=== PATIENT | female | born 1940 | race African-American/Black ===

== ENCOUNTER 2017-03-20 10:07 | Inpatient (IN) ==
[2017-03-20] MEDS ORDERED: NALOXONE 0.4 MG/ML VIAL IV STA (10:30)
[2017-03-20] MEDS ORDERED: NALOXONE 0.4 MG/ML VIAL ONE (10:35)
--- NOTE | 2017-03-20 10:44 | CT Report ---
CT of the head without contrast. Indication: Mental status change. Comparison: May 11, 2016. There is calcific plaque present within the intracranial internal carotid arteries. 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 There is stable cerebellar atrophy. There is bilateral basal ganglial calcification. There are findings of low density in the periventricular white matter likely related to chronic microvascular ischemia. Possible remote cortical infarct involving the left temporal lobe. Is no mass effect, midline shift, or area of hemorrhage. There is a mucous retention cyst or polyp in the left sphenoid sinus, stable. The mastoid air cells are clear. The calvarium is intact. Impression: Chronic ischemic changes. No acute abnormality. The CT exam was performed using one or more of the following dose reduction techniques: Automated exposure control, adjustment of the mA and/or kV according to patient size, or use of iterative reconstruction technique. PROCEDURE INTERPRETED AT [facility] DEPARTMENT OF RADIOLOGY Final Report Signed by: Dr. Rosa Maria Bryant
--- NOTE | 2017-03-20 10:45 | XRay Report ---
Portable chest. Indication: Altered mental status. The heart and mediastinal contours are unremarkable. The pulmonary vasculature is normal. There is no consolidation, pneumothorax, or pleural effusion. Degenerative changes are noted within the thoracic spine. Impression: No acute abnormality. PROCEDURE INTERPRETED AT [facility] DEPARTMENT OF RADIOLOGY Final Report Signed by: Dr. Rosa Maria Bryant
--- NOTE | 2017-03-20 10:48 | Emergency Department Note ---
Aimee Cleaning Mantricia, am scribing for, and in the presence of, Gurpreet Hartman MD 10:25. Minnie Cleaning James D, MD, personally performed the services described in this documentation, ascribed by Yogi Yu in my presence, and it is both accurate and complete . Arrival - Arrival Chief Complaint: Neuro Stated Complaint: decreased LOC ED Nursing Triage Note: PT SENT FROM THE [facility] FOR EVALUATION OF DECREASED LOC. EMS CALLED FOR PT UNRESPONSIVE. PT RESPONSIVE ONLY TO DEEP PAINFUL STIMULI. NARCAN 0.8MG TOTAL GIVEN PER EMS, AND PT BECAME EASIER TO AROUSE. PT IS CURRENTLY HARD TO AROUSE. LAST KNOWN WELL LAST NIGHT BEFORE BED. Mode of Arrival: Stretcher Limitations: Altered Mental Status Source: Patient - History of Present Illness HPI Narrative: Pt is a 76 y/o black female arriving to ED by EMS with c/o decreased LOC that onset yesterday. Pt is a resident at the [facility] and which is who called EMS. EMS reports that pt was only responsive to deep painful stimuli. Pt was given 0.4 mg of Narcan initially and became minimally responsive, so she was given another 0.4 mg of Narcan per EMS. The [facility] reports that pt is usually awake by 0500 every morning; however, this morning, pt seemed very drousy and slow. No other complaints were reported to ED. Onset (ago): hour(s) Consistency: constant Severity: moderate Allergies/Adverse Reactions: Allergies Allergy/AdvReac Type Severity Reaction Status Date / Time No Known Allergies Allergy Verified 03/20/17 10:20 Review of System - Review of System Constitutional: Absent: chills, diaphoresis, fever Respiratory: Absent: cough Cardiovascular: Absent: chest pain Gastrointestinal: Absent: abdominal pain, nausea, vomiting, diarrhea Musculoskeletal: Absent: arm pain, back pain, leg pain, neck pain Neurological: Present: other (decreased LOC). Absent: headache, weakness, numbness, confusion Medical,Surgical,& Family Hx - Medical History Cardio: History of: Hypertension Neurology: History of: Parkinson's Disease Endocrine: History of: Diabetes Mellitus (NIDDM) - Social History Smoking Status: Never smoker Frequency of Alcohol Use: None Type of Drug Use: None Exam Vital Signs: Vital Signs Temperature 99.0 F 03/20/17 10:07 Pulse Rate 55 L 03/20/17 10:07 Respiratory Rate 16 03/20/17 10:07 Blood Pressure 135/65 03/20/17 10:07 O2 Sat by Pulse Oximetry 96 03/20/17 10:07 GENERAL: This is a well-nourished well-developed chronically ill-appearing black female in no apparent distress. VITAL SIGNS: Reviewed HEENT: Head is atraumatic and normocephalic. Pupils are pinpoint. Extraocular movements are intact. Oropharynx is benign with moist mucous membranes. NECK: Neck is soft and supple without tenderness. There are no masses. There is no lymphadenopathy. LUNGS: Lungs are clear to auscultation. Chest rises symmetrically. There is no chest wall tenderness. CV: Heart is regular rate and rhythm without murmurs rubs or gallops. ABDOMEN: Abdomen is soft, nontender to palpation. There are no abdominal abnormal masses palpated. There is no organomegaly. Bowel sounds are present and active. SKIN: Skin is warm and dry. No rash. EXTREMITIES: Patient has full range of motion without tenderness. There is no pedal edema. NEUROLOGIC: Patient is arousable to tactile stimulus. Cranial nerves II through XII are intact. Motor function: Patient moves all extremities. Course - Consultations Consultation #1: Discussed with hospitalist. Patient will be admitted to their service. Patient was given IV fluids and IV Rocephin in the emergency department. Time: 11:24 Results - Labs CBC & BMP: 03/20/17 10:43 Lab Results: I have reviewed the patients labs Labs: Laboratory Tests 03/20/17 03/20/17 10:46 11:04 INR 1.1 Urine pH 7.0 Ur Specific [place] 1.006 Urine Nitrate Positive H Urine Urobilinogen < 2.0 H Urine Leukocytes Moderate H Urine RBC 4 Urine WBC 74 - EKG EKG results: interpreted by ERMD - Impressions EKG: Sinus bradycardia, nonspecific ST-T wave changes, rate 50. - Diagnostic Findings Procedure: Chest x-ray: report reviewed by me, image reviewed by me (No acute abnormality.), CT: report reviewed by me, image reviewed by me (Head: Chronic ischemic changes. No acute abnormality.) Disposition Clinical Impression: Altered mental status, UTI (urinary tract infection) Case discussed with: patient Disposition: Still a Patient Condition: Stable Time of Disposition: 11:19
[2017-03-20 10:54] LABS: Basophils % 0.4 % (0.0-0.8); Eosinophils # 0.1 10*3/uL (0.0-0.87); Eosinophils % 1.6 % (0.00-10.9); Hematocrit 35.7 VOL% (35.7-47.0); Hemoglobin 12.9 GM/DL (12.0-16.0); Immature Granulocytes % 0.7 %; Immature Granulocytes Absolute 0.05 #; Lymphocytes # 1.8 10*3/uL (1.4-4.0); Lymphocytes % 25.8 % (21.3-54.2); Mean Corpuscular HGB Conc 36.1 GM/DL (32-36); Mean Corpuscular Hemoglobin 29 PG (27-34); Mean Corpuscular Volume 80.4 FL (87-102); Mean Platelet Volume 11.6 FL (9.6-12.0); Monocytes # 0.6 10*3/uL (0.11-0.8); Monocytes % 8.6 % (1.7-12.7); Neutrophils # 4.4 10*3/uL (1.4-7.4); Neutrophils % 62.9 % (38.7-73.9); Platelet Count 332 T/CUMM (130-400); Red Blood Count 4.44 MC/CUMM (3.8-5.5); Red Cell Distribution Width 13.7 % (9.3-17.3)
--- NOTE | 2017-03-20 10:55 | EKG Report ---
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
[2017-03-20 11:03] LABS: INR 1.1; PT Patient Result 11.2 SECS; Partial Thromboplastin Time 28.2 SECS (0-40)
[2017-03-20 11:11] LABS: Apearance,Urine Slightly Hazy (Clear); Bacteria,Urine Occasional /HPF (Few); Bilirubin,Urine Negative (Negative); Blood, Urine Small mg/dL (Negative); Glucose,Urine (UA) Negative (Negative); Ketones,Urine Negative (Negative); Nitrite,Urine Positive (Negative); Protein,Urine Negative; RBC,Urine 4 /HPF (0-4); Urine Color Yellow (Yellow); Urine Specific Gravity 1.006 (1.001-1.035); Urine Urobilinogen < 2.0 EU/DL (0.2-1.0); WBC,Urine 74 /HPF (0-6)
[2017-03-20] MEDS ORDERED: cefTRIAXone 1,000 MG in SODIUM CHLORIDE 0.9% 100 ML IV STA (11:18)
[2017-03-20 11:25] LABS: Barbiturates Screen,Urine Negative (Negative); Benzodiazepines Screen,Urine Negative (Negative); Cannabinoid Screen,Urine Negative (Negative); Opiate Screen,Urine Negative (Negative); Phencyclidine Screen,Urine Negative (Negative)
[2017-03-20 11:29] LABS: Albumin 3.8 G/DL (3.4-5.0); Bilirubin,Total 0.6 MG/DL (0.2-1.0); Calcium 9.5 MG/DL (8.5-10.1); Osmolality,Calculated 281.3 MOS/KG (273-304); Potassium 3.7 MMOL/L (3.5-5.1); Total Protein 6.9 G/DL (6.4-8.3)
[2017-03-20] MEDS ORDERED: cefTRIAXone 1,000 MG VIAL ONE (11:39)
--- NOTE | 2017-03-20 12:00 | Hospitalist History & Physical ---
<Bert Wall - Last Filed: 03/20/17 11:51> Assessment and Plan - Time spent with patient Time spent with patient: Greater than 30 minutes (1) Altered mental status Status: Acute Assessment and plan: 76-year-old -[place] halfway resident who presents with altered mental status. His CT is negative. Chest x-ray negative. Patient does have a UTI however white count is normal. Ammonia level is 39. Patient does respond to painful stimuli and some questioning. Admit for observation with antibiotic treatment and lactulose for the hyperammonemia. Current Visit: Yes (2) UTI (urinary tract infection) Status: Acute Assessment and plan: Urinalysis positive for nitrates, urobilinogen and moderate leukocytes. Urine culture to follow. Patient has been started on empiric Rocephin. Current Visit: Yes (3) Hyperammonemia Status: Acute Assessment and plan: Ammonia level resulted at 39. Give lactulose. Current Visit: Yes (4) Hypertension Status: Acute Assessment and plan: BP currently well controlled. Continue to monitor BP and restart home medications once confirmed. Current Visit: Yes (5) Diabetes mellitus Status: Acute Assessment and plan: Per ED nurse, the patient does have diabetes mellitus. Serum glucose is 89. Will get a hemoglobin A1c and initiate sliding scale insulin per protocol. Current Visit: Yes (6) Systemic inflammatory response syndrome (SIRS) Status: Acute Assessment and plan: There was concern for possible sepsis. Appropriate labs have been ordered. No leukocytosis or fever. Respiratory rate and heart rate are within normal limits. Blood cultures and lactic acid pending. Will follow up. Current Visit: Yes History of Present Illness Chief complaint: Altered mental status History of present illness: Ms. Reis is a 76 year old -Liberian female with past medical history significant for hypertension and Parkinson's disease who presents to the ED via EMS from her halfway for further evaluation of altered mental status with onset this morning. According to EMS records, the patient is normally quite independent and is awake most days at 0500. However, today the patient was found to be difficult to arouse and only responded to painful stimuli. EMS was called and patient was transferred to [facility] for further evaluation. On arrival at [facility], the patient still responds only to painful stimuli and does answer some questions. She is oriented to person place and situation, but she is noticeably lethargic. She was apparently given 2 doses of Narcan while at the halfway with minimal response. On exam, the patient denies any pain though questioning her was difficult due to her drifting in and out of consciousness. Hematology reveals a relatively normal CBC with a low MCV and MCHC. Coagulation is unremarkable. Chemistries reveal an elevated ammonia level at 39. Urinalysis is positive for nitrates, urobilinogen and moderate leukocytes. Urine culture to follow. Toxicology screen is negative. This case been discussed with both Dr. Hartman, ER physician, and Dr. Gomez, admitting physician, and patient will be admitted to the hospital medicine service for further evaluation and treatment. Patient is a full code. Home medications will be reviewed and reconciled once available. Allergies Allergy/AdvReac Type Severity Reaction Status Date / Time No Known Allergies Allergy Verified 03/20/17 10:20 Medical,Surgical,& Family Hx - Medical History Cardio: History of: Hypertension Neurology: History of: Parkinson's Disease Endocrine: History of: Diabetes Mellitus (NIDDM) - Family History Family History: Reports;: Family Heart Disease, Family Hypertension - Social History Smoking Status: Never smoker Frequency of Alcohol Use: None Type of Drug Use: None Marital Status: Single Lives With:: [facility] Functional capacity: independent ambulation ROS unobtainable: due to encephalopathy Exam - Constitutional Vitals: Period Temp Pulse Resp BP Sys/Alexander Pulse Ox Last 24 Hr 99.0 F-99.0 F 55-55 16-16 135-135/65-65 96 Exam: General appearance: normal weight, no acute distress, lethargic - Head Head exam: Present: normocephalic, atraumatic - Eye Eye exam: Present: EOMI. Absent: conjunctival injection, nystagmus Pupils: Present: KATARINA, normal accommodation - ENT ENT exam: Present: normal exam, normal external ear exam - Neck Neck exam: Present: normal inspection. Absent: lymphadenopathy, tenderness, thyromegaly - Respiratory Respiratory exam: Present: clear to auscultation bilaterally. Absent: rales, rhonchi, wheezes - Cardiovascular Cardiovascular exam: Present: regular rate and rhythm. Absent: carotid bruit, gallop, rubs - GI/Abdominal GI/Abdominal exam: Present: normal bowel sounds. Absent: ascites, distended, mass - Extremities Exam Extremities exam: Present: normal inspection, normal capillary refill. Absent: edema - Back Exam Back exam: Absent: CVA tenderness (L), CVA tenderness (R) - Neurological Exam Neurological exam: Present: oriented X3, CN II-XII intact, reflexes normal - Psychiatric Psychiatric exam: Unable to assess due to mental status - Skin Skin exam: Present: normal color, warm, dry Results - Labs CBC & BMP: 03/20/17 10:43 03/20/17 10:46 Lab Results: I have reviewed the past 24 hour labs - EKG EKG results: interpreted by ERMShania, sinus rhythm EKG shows: bradycardia - Diagnostic Findings Procedure: Chest x-ray: image reviewed by me, report reviewed by me (No abnormality), CT: image reviewed by me, report reviewed by me (Head: No abnormalities) Quality Measures - Stroke Symptom Onset Unknown: Yes <Christopher Gomez - Last Filed: 03/20/17 15:07> History of Present Illness History of present illness: Ms. Reis is a 76 year old female admitted to the hospital with a urinary tract infection, altered mental status, and hyperammonia anemia. I have interviewed and examined the patient and reviewed all available laboratory and radiographic test results. I agree with the assessment and plans of ALETHEA Doyle. The patient is being admitted to the hospital, begun on intravenous antibiotics, and begun on oral lactulose. Exam - Constitutional Vitals: Period Temp Pulse Resp BP Sys/Alexander Pulse Ox Last 24 Hr 98.2 F-99.0 F 50-74 16-20 109-162/57-72 95-98 Results - Labs CBC & BMP: 03/20/17 10:43 03/20/17 10:46
[2017-03-20] MEDS ORDERED: GLUCAGON 1 MG VIAL IM PRN ×2 (12:19→15:06)
[2017-03-20] MEDS ORDERED: DEXTROSE 50% 25 GM/50 ML SYRINGE IV PRN ×2 (12:19→15:06)
[2017-03-20] MEDS ORDERED: ONDANSETRON 4 MG/2 ML VIAL IV PRN (12:19)
[2017-03-20] MEDS ORDERED: tiZANidine 4 MG TABLET PO PRN (12:25)
[2017-03-20] MEDS ORDERED: MAGNESIUM HYDROXIDE SUSP 30 ML UDCUP PO PRN (12:25)
[2017-03-20] MEDS ORDERED: CETIRIZINE 10 MG TABLET PO PRN (12:25)
[2017-03-20] MEDS: SODIUM CHLORIDE 0.9% 1,000 ML IV SCH ×2 (13:28→21:09)
[2017-03-20] MEDS: PANTOPRAZOLE 40 MG TABLET PO SCH (14:38)
[2017-03-20] MEDS: LACTULOSE 20 GM/30 ML UDCUP PO SCH ×4 (14:38→21:02)
[2017-03-20] MEDS: CARBIDOPA/LEVODOPA 25-100 MG TABLET PO SCH ×3 (14:38→21:02)
[2017-03-20] MEDS: ENTACAPONE 200 MG TABLET PO SCH ×3 (15:29→21:02)
[2017-03-20] MEDS: POLYVINYL ALCOHOL 1.4% OPH SOLN 15 ML BOTTLE BOTH EYES SCH ×2 (15:29→21:03)
[2017-03-20] MEDS: INSULIN LISPRO 100 UNIT/ML SUBCUT SCH ×2 (17:03→20:54)
[2017-03-20] MEDS: metFORMIN 500 MG TABLET PO SCH (17:38)
[2017-03-20] MEDS: traZODone 50 MG TABLET PO SCH (21:02)
[2017-03-20] MEDS: POTASSIUM CHLORIDE 8 MEQ CAPSULE PO SCH (21:02)
[2017-03-20] MEDS: LATANOPROST 0.005% OPH SOLN 2.5 ML BOTTLE BOTH EYES SCH (21:18)
[2017-03-20] MEDS: ACETAMINOPHEN 325 MG TABLET PO PRN (23:01)
[2017-03-21] MEDS: LACTULOSE 20 GM/30 ML UDCUP PO SCH ×9 (00:05→23:54)
[2017-03-21 04:19] LABS: Basophils % 0.4 % (0.0-0.8); Eosinophils # 0.1 10*3/uL (0.0-0.87); Eosinophils % 1.4 % (0.00-10.9); Hematocrit 31.4 VOL% (35.7-47.0); Hemoglobin 11.3 GM/DL (12.0-16.0); Immature Granulocytes % 0.7 %; Immature Granulocytes Absolute 0.06 #; Mean Corpuscular Hemoglobin 29 PG (27-34); Mean Corpuscular Volume 81.8 FL (87-102); Monocytes # 0.7 10*3/uL (0.11-0.8); Monocytes % 9.1 % (1.7-12.7); Neutrophils # 6.1 10*3/uL (1.4-7.4); Neutrophils % 75.4 % (38.7-73.9); Platelet Count 273 T/CUMM (130-400); Red Blood Count 3.84 MC/CUMM (3.8-5.5); Red Cell Distribution Width 13.8 % (9.3-17.3)
[2017-03-21 04:42] LABS: Calcium 7.9 MG/DL (8.5-10.1); Osmolality,Calculated 289.7 MOS/KG (273-304); Potassium 3.6 MMOL/L (3.5-5.1)
[2017-03-21] MEDS: CARBIDOPA/LEVODOPA 25-100 MG TABLET PO SCH ×5 (05:46→21:51)
[2017-03-21] MEDS: SODIUM CHLORIDE 0.9% 1,000 ML IV SCH ×3 (05:46→23:58)
[2017-03-21] MEDS: ENTACAPONE 200 MG TABLET PO SCH ×5 (05:46→21:50)
[2017-03-21] MEDS: INSULIN LISPRO 100 UNIT/ML SUBCUT SCH ×4 (08:39→21:51)
[2017-03-21] MEDS: PANTOPRAZOLE 40 MG TABLET PO SCH (09:49)
[2017-03-21] MEDS: TRIAMTERENE/HCTZ 37.5-25 MG TABLET PO SCH (09:49)
[2017-03-21] MEDS: POLYVINYL ALCOHOL 1.4% OPH SOLN 15 ML BOTTLE BOTH EYES SCH ×3 (09:49→21:50)
[2017-03-21] MEDS: metFORMIN 500 MG TABLET PO SCH ×2 (09:50→17:24)
[2017-03-21] MEDS: POTASSIUM CHLORIDE 8 MEQ CAPSULE PO SCH ×2 (09:50→21:51)
[2017-03-21] MEDS: FUROSEMIDE 20 MG TABLET PO SCH (09:50)
[2017-03-21] MEDS: RASAGILINE 0.5 MG TABLET PO SCH (09:50)
[2017-03-21] MEDS: FLUTICASONE 50 MCG NASAL SPRAY 16 GM BOTTLE BOTH NARES SCH (09:50)
--- NOTE | 2017-03-21 10:19 | Hospitalist Progress Note ---
Assessment and Plan (1) Altered mental status Status: Acute Assessment and plan: She is alert and oriented 3 today. She is returned to what is her reported baseline mental status. Current Visit: Yes Qualifiers: Altered mental status type: unspecified Qualified Code(s): R41.82 - Altered mental status, unspecified (2) UTI (urinary tract infection) Status: Acute Assessment and plan: She is being treated with intravenous ceftriaxone 1000 mg daily. Urine cultures are pending. Current Visit: Yes Qualifiers: Urinary tract infection type: site unspecified Hematuria presence: without hematuria Qualified Code(s): N39.0 - Urinary tract infection, site not specified (3) Hypertension Status: Acute Assessment and plan: Blood pressure today is 94/44. It was 114/55 yesterday. I have held her antihypertensive medications. Current Visit: Yes Qualifiers: Hypertension type: essential hypertension Qualified Code(s): I10 - Essential (primary) hypertension (4) Diabetes mellitus Status: Acute Assessment and plan: Her blood glucose today is 99. She is being treated with Metformin and sliding scale insulin coverage. Current Visit: Yes Qualifiers: Diabetes mellitus type: type 2 Diabetes mellitus complication status: without complication Hospitalist: Subjective Interval history: Ms. Reis was admitted to the hospital yesterday with a urinary tract infection and altered mental status. She has been treated with intravenous antibiotics. Her mental status has returned to reportedly her baseline status. I will continue her intravenous antibiotics today. [facility]. Exam - Constitutional Vitals: Period Temp Pulse Resp BP Sys/Alexander Pulse Ox Last 24 Hr 97.4 F-98.3 F 50-83 16-22 94-162/44-72 93-98 General appearance: no acute distress - Head Head exam: Present: normal inspection - Neck Neck exam: Present: normal inspection - Respiratory Respiratory exam: Present: clear to auscultation bilaterally - Cardiovascular Cardiovascular exam: Present: regular rate and rhythm - GI/Abdominal GI/Abdominal exam: Present: normal bowel sounds, soft, other (Nontender with no palpable masses or hepatosplenomegaly.) - Extremities Exam Extremities exam: Present: normal inspection - Neurological Exam Neurological exam: Present: alert, oriented X3 - Skin Skin exam: Present: normal color, warm, intact Results - Labs CBC & BMP: 03/21/17 03:50 03/21/17 03:50 Quality Measures - Stroke Symptom Onset Unknown: Yes
[2017-03-21] MEDS: traZODone 50 MG TABLET PO SCH (21:51)
[2017-03-21] MEDS: LATANOPROST 0.005% OPH SOLN 2.5 ML BOTTLE BOTH EYES SCH (21:56)
[2017-03-22] MEDS: LACTULOSE 20 GM/30 ML UDCUP PO SCH ×7 (03:52→20:43)
[2017-03-22] MEDS: CARBIDOPA/LEVODOPA 25-100 MG TABLET PO SCH ×5 (06:42→21:30)
[2017-03-22] MEDS: ENTACAPONE 200 MG TABLET PO SCH ×5 (06:42→21:30)
[2017-03-22 06:43] LABS: Basophils % 0.2 % (0.0-0.8); Eosinophils # 0.2 10*3/uL (0.0-0.87); Eosinophils % 1.9 % (0.00-10.9); Hematocrit 33.5 VOL% (35.7-47.0); Hemoglobin 11.8 GM/DL (12.0-16.0); Immature Granulocytes % 0.7 %; Immature Granulocytes Absolute 0.06 #; Lymphocytes # 1.4 10*3/uL (1.4-4.0); Lymphocytes % 16.6 % (21.3-54.2); Mean Corpuscular HGB Conc 35.2 GM/DL (32-36); Mean Corpuscular Hemoglobin 29 PG (27-34); Mean Corpuscular Volume 82.1 FL (87-102); Mean Platelet Volume 12.6 FL (9.6-12.0); Monocytes # 0.6 10*3/uL (0.11-0.8); Monocytes % 7.8 % (1.7-12.7); Neutrophils % 72.8 % (38.7-73.9); Platelet Count 279 T/CUMM (130-400); Red Blood Count 4.08 MC/CUMM (3.8-5.5); Red Cell Distribution Width 13.9 % (9.3-17.3); White Blood Count 8.2 T/CUMM (4-12)
[2017-03-22 07:04] LABS: Calcium 8.4 MG/DL (8.5-10.1); Osmolality,Calculated 285.8 MOS/KG (273-304); Potassium 4.2 MMOL/L (3.5-5.1)
[2017-03-22] MEDS: INSULIN LISPRO 100 UNIT/ML SUBCUT SCH ×4 (08:50→20:34)
[2017-03-22] MEDS: SODIUM CHLORIDE 0.9% 1,000 ML IV SCH ×2 (08:53→16:58)
[2017-03-22] MEDS: metFORMIN 500 MG TABLET PO SCH ×2 (08:53→17:21)
[2017-03-22] MEDS: RASAGILINE 0.5 MG TABLET PO SCH (08:54)
[2017-03-22] MEDS: POLYVINYL ALCOHOL 1.4% OPH SOLN 15 ML BOTTLE BOTH EYES SCH ×3 (08:54→20:43)
[2017-03-22] MEDS: FUROSEMIDE 20 MG TABLET PO SCH (08:55)
[2017-03-22] MEDS: TRIAMTERENE/HCTZ 37.5-25 MG TABLET PO SCH (08:55)
[2017-03-22] MEDS: POTASSIUM CHLORIDE 8 MEQ CAPSULE PO SCH ×2 (08:55→20:44)
[2017-03-22] MEDS: FLUTICASONE 50 MCG NASAL SPRAY 16 GM BOTTLE BOTH NARES SCH (08:55)
[2017-03-22] MEDS: PANTOPRAZOLE 40 MG TABLET PO SCH (08:56)
--- NOTE | 2017-03-22 10:40 | Physician Query Form ---
CLICK EDIT DOCUMENT TO SELECT QUERY ANSWER --> OK --> SIGN Poly Wilson RN, CCDS Certified Clinical Internal Grinder Set Up Operator W) [phone] (f) [phone] [email or web address] PROVIDERS: Make your selection(s) from the choices in EACH section by typing an "x" and enter comments in the comment section. Please use your independent medical judgment in providing your response. This request does not imply that any particular answer is desired or expected. CLINICAL INDICATORS: (Providers should not edit this section) The medical record indicates that the patient was admitted with an UTI, AMS, "EMS reports that pt was only responsive to deep painful stimuli, and the patient was treated with Ceftriaxone/ Lactulose/ Patient had a CT of the brain done. ACUITY: ( ) Acute ( x) Acute on Chronic ( ) Chronic ( ) Clinically unable to determine NATURE: ( ) Delirium due to general medical condition ( ) Dementia ( ) Encephalopathy (x ) Encephalopathy due to UTI ( ) Unconscious ( ) Transient level of awareness ( ) Comatose ( ) Locked-in State ( ) Persistent Vegetative State ( ) Other, please specify: ( ) Clinically unable to determine Please indicate the underlying cause of the altered mental status (CHECK ALL THAT APPLY): ( ) Baseline dementia ( ) Alzheimer's disease ( ) Parkinson's disease ( ) Lewy body dementia ( ) Acute stroke ( ) Late effect of stroke ( ) Reactive (from emotional stress, psychological trauma) ( ) Due to narcotics/other drugs ( ) Post procedural delirium ( ) Transient ischemic attack ( ) Generalized cerebral edema ( ) Normal pressure hydrocephalus ( ) Psychiatric illness ( ) Other, please specify: ( ) Clinically unable to determine Please indicate if there is an infection, sepsis, dehydration or specific organ failure that is causing the dementia. Be specific with clarifying the relationship between that process and the mental status change. COMMENTS: PLEASE ALSO DOCUMENT RESPONSE IN PROGRESS NOTES AND/OR DISCHARGE SUMMARY Use of terms such as suspected, likely, or probable (associated with a specific diagnosis that is being evaluated, monitored, or treated as if it exists) are acceptable and can be restated in the discharge summary if not ruled out. MTDD
[2017-03-22] MEDS: ACETAMINOPHEN 325 MG TABLET PO PRN ×2 (11:50→22:45)
--- NOTE | 2017-03-22 17:37 | Hospitalist Progress Note ---
Hospitalist: Subjective Interval history: Patient is awake and comfortable Exam - Constitutional Vitals: Period Temp Pulse Resp BP Sys/Alexander Pulse Ox Last 24 Hr 97.6 F-98.6 F 62-76 18-22 107-127/54-79 92-99 Exam: General: No Acute Distress HEENT: Normocephalic, atraumatic, Extra ocular movements intact Neck: Supple, No JVD Chest: Clear to auscultation B/L CV: S1 + S2 audible without murmur, gallop or rub Abd: soft, NT, Non-distended, BS + Ext: No edema Skin: No purpura, bruising or rash Rheumatologic: No Joint deformities Neurologic: no gross sensory deficits Results - Labs CBC & BMP: 03/22/17 05:02 03/22/17 05:02 - Impressions Assessment and Plan: (1) Altered mental status Status: Acute Assessment and plan: She is alert and oriented 3 today. She is returned to what is her reported baseline mental status. Current Visit: Yes (2) UTI (urinary tract infection) Status: Acute Assessment and plan: She is being treated with intravenous ceftriaxone 1000 mg daily. Urine cultures are pending. Current Visit: Yes (3) Hypertension Status: Acute Assessment and plan: Controlled on Controlled on Maxzide Current Visit: Yes (4) Diabetes mellitus Status: Acute Assessment and plan: Controlled Current Visit: Yes Quality Measures - Stroke Symptom Onset Unknown: Yes
[2017-03-22] MEDS: LATANOPROST 0.005% OPH SOLN 2.5 ML BOTTLE BOTH EYES SCH (20:43)
[2017-03-22] MEDS: traZODone 50 MG TABLET PO SCH (20:44)
[2017-03-23] MEDS: LACTULOSE 20 GM/30 ML UDCUP PO SCH ×2 (01:00→03:01)
[2017-03-23] MEDS: SODIUM CHLORIDE 0.9% 1,000 ML IV SCH ×2 (01:05→10:06)
[2017-03-23] MEDS: INSULIN LISPRO 100 UNIT/ML SUBCUT SCH ×2 (07:49→12:19)
[2017-03-23] MEDS: ENTACAPONE 200 MG TABLET PO SCH ×2 (07:49→10:06)
[2017-03-23] MEDS: CARBIDOPA/LEVODOPA 25-100 MG TABLET PO SCH ×2 (07:49→10:06)
[2017-03-23] MEDS: metFORMIN 500 MG TABLET PO SCH (09:20)
[2017-03-23] MEDS: FUROSEMIDE 20 MG TABLET PO SCH (09:20)
[2017-03-23] MEDS: RASAGILINE 0.5 MG TABLET PO SCH (09:20)
[2017-03-23] MEDS: FLUTICASONE 50 MCG NASAL SPRAY 16 GM BOTTLE BOTH NARES SCH (09:20)
[2017-03-23] MEDS: POLYVINYL ALCOHOL 1.4% OPH SOLN 15 ML BOTTLE BOTH EYES SCH (09:20)
[2017-03-23] MEDS: POTASSIUM CHLORIDE 8 MEQ CAPSULE PO SCH (09:21)
[2017-03-23] MEDS: PANTOPRAZOLE 40 MG TABLET PO SCH (09:21)
[2017-03-23] MEDS: TRIAMTERENE/HCTZ 37.5-25 MG TABLET PO SCH (09:21)
[2017-03-23] MEDS ORDERED: CEFUROXIME 500 MG TABLET PO SCH (09:30)
--- NOTE | 2017-03-23 11:28 | Discharge Summary ---
<Christina Barron - Last Filed: 03/23/17 11:12> Hospital Course - Hospital Course Hospital Course: Ms Reis w/PMHx of HTN, Parkinson's disease, Diabetes presented to the ED on for further evaluation decreased LOC from the [facility]. Narcan was given by EMS and showed improvement of LOC. IN ED: H&H stable. Electrolytes WNL. Ammonia mildly elevated at 39. Urinalysis suggested urinary tract infection. Toxicology negative. CXR: nothing acute. Head CT: nothing acute. EKG: sinus bradycardia HR 50. Hospital Medicine consulted for admission, Antibiotics started for UTI, urine culture ordered, Lactulose ordered for ammonia level, sliding scale and diabetic protocol initiated and monitor glucose and A1c. With IV Rocephin patient showed great improvement in symptoms and mental status is now back to baseline, repeat labs showed improving values and patient returned to baseline mental status. Final Urine culture for Escherichia Coli sensitive to several antibiotics. Today 03/23/17 patient is stable and symptoms have improved. She is ready for discharge returning to [facility]. She will need to follow up with Primary Care Physician. Patient has reached maximal hospital benefit and being discharged back to longterm. Total discharge time 40 minutes. Discharge Plan - Discharge Data Disposition: Disch/Xfer to Snf - Discharge Medications New Cefuroxime Tab [Ceftin] 500 mg PO BID #10 tablet Entacapone [Comtan] 200 mg PO 5X DAILY tablet Continue Ondansetron Tab [Zofran Tab] 4 mg PO Q6H PRN PRN Reason: Nausea/Vomiting traZODone [Desyrel] 25 mg PO BEDTIME metFORMIN [Glucophage] 500 mg PO BID W/MEALS Triamterene/Hydrochlorothiazid [Triamterene-Hctz 37.5-25 mg Tb] 1 each PO QAM Tizanidine HCl 2 mg PO Q8H PRN PRN Reason: Muscle Pain Potassium Chloride [Klor-Con Sprinkle] 8 meq PO BID Polyvinyl Alcohol [Artificial Tears] 1 drop BOTH EYES TID Magnesium Hydroxide Susp [Milk of Magnesia] 30 ml PO DAILY PRN PRN Reason: Constipation Latanoprost [Latanoprost 0.005 % Oph Soln] 1 drop BOTH EYES BEDTIME Furosemide 20 mg PO QAM Fluticasone Propionate [Fluticasone 50 mcg Nasal [place]] 2 sprays BOTH NARES QAM Carbidopa/Levodopa/Entacapone [Yusxgduqh-Boodmyok-Zirm 100 mg] 1 each PO 5X DAILY Acetaminophen [Pain Relief] 1,000 mg PO Q6H PRN PRN Reason: Pain/TEMP >101 Rasagiline Mesylate 1 mg PO QAM Omeprazole 40 mg PO QAM Cetirizine Tab [ZyrTEC Tab] 10 mg PO QAM PRN PRN Reason: ALLERGIES - Follow Up or Referral - Forms/Instructions Exam - Constitutional Vitals: Period Temp Pulse Resp BP Sys/Alexander Pulse Ox Last 24 Hr 97.3 F-98.5 F 71-77 18-22 121-150/60-79 94-96 Discharge Results Procedures and tests throughout hospitalization: Pending Orders 03/20/17 11:38 Blood Culture Stat Labs on day of discharge: Labs from last 24 hours 03/23/17 03/22/17 03/22/17 07:14 19:45 15:50 POC Glucose 94 109 H 98 Preliminary micro results at discharge 03/20/17 11:38 Blood Culture - Preliminary Blood No growth at 1 day 03/20/17 11:38 Blood Culture - Preliminary Blood No growth at 1 day DS: Provider Date of admission: 03/20/17 11:27 Primary care physician: . No PCP Attending physician on admission: Christopher Gomez Consults: 03/20/17 13:22 Consult to Pastoral Services [CONS] Routine Comment: Pastoral Screen: Request Core Cutter Visit Pastoral Screen Source of Request: Patient 03/21/17 10:21 Consult to Case Mgmt/Social Srvs [CONS] Routine Reason for Case Mgmt/Social Srvs: Discharge Planning Consult Comment: Discharge tommorow to [place] Discharging clinician: Christina Barron NP <Prieto Lorenzo - Last Filed: 03/23/17 11:59> Hospital Course - Time spent with patient Time with patient DS: Greater than 30 minutes Diagnosis - Discharge Diagnosis (1) UTI (urinary tract infection) Status: Resolved (2) Hyperammonemia Status: Resolved Discharge Plan - Discharge Data Condition at Discharge: Stable Discharge Diet: advance to your usual diet Activity: resume usual activities as tolerated Exam - Constitutional Exam: General: No Acute Distress HEENT: Normocephalic, atraumatic, Extra ocular movements intact Neck: Supple, No JVD Chest: Clear to auscultation B/L CV: S1 + S2 audible without murmur, gallop or rub Abd: soft, NT, Non-distended, BS + Ext: No edema Skin: No purpura, bruising or rash Rheumatologic: No Joint deformities Neurologic: Awake and alert
[2017-03-23 11:51] VITALS: BP 139/63
== END 2017-03-23 13:40 | DRG 689 ==
LOC: EDBD → EDUNIT# → N.ED 10:07 → N.EDINP 11:27 → SUATTDRO 11:27 → N.2E 13:00
PROVIDERS: ATTEND Hospitalist

== ENCOUNTER 2019-12-04 14:27 | Inpatient (IN) ==
[2019-12-04] MEDS ORDERED: SODIUM CHLORIDE 0.9% 1,000 ML IV STA (15:21)
[2019-12-04 16:25] LABS: Hematocrit 38.9 VOL% (35.7-47.0); Hemoglobin 13.6 GM/DL (12.0-16.0); Immature Granulocytes % 0.8 %; Immature Granulocytes Absolute 0.04 #; Lymphocytes # 1.1 10*3/uL (1.4-4.0); Mean Corpuscular Volume 82.6 FL (87-102); Mean Platelet Volume 12.1 FL (9.6-12.0); Monocytes % 7.9 % (1.7-12.7); Neutrophils % 70.3 % (38.7-73.9); Platelet Count 251 T/CUMM (130-400); Red Blood Count 4.71 MC/CUMM (3.8-5.5); Red Cell Distribution Width 14.9 % (9.3-17.3)
[2019-12-04 16:32] LABS: Apearance,Urine CLEAR (Clear); Bacteria,Urine Many /HPF (Few); Bilirubin,Urine Negative (Negative); Blood, Urine Small mg/dL (Negative); Glucose,Urine (UA) Negative (Negative); Hyaline Casts,Urine 1 /LPF (0-3); Ketones,Urine Negative (Negative); Nitrite,Urine Negative (Negative); Protein,Urine Negative; RBC,Urine 17 /HPF (0-4); Squamous Epithelial Cell,Urine Occasional /HPF (0-10); Urine Color Amber (Yellow); Urine Specific Gravity 1.013 (1.001-1.035); Urine Urobilinogen < 2.0 EU/DL (0.2-1.0)
[2019-12-04 16:37] LABS: Barbiturates Screen,Urine Negative (Negative); Benzodiazepines Screen,Urine Negative (Negative); Cannabinoid Screen,Urine Negative (Negative); Opiate Screen,Urine Negative (Negative); Phencyclidine Screen,Urine Negative (Negative)
[2019-12-04 16:38] LABS: Alanine Aminotransferase 33 U/L (13-56); Albumin 3.6 G/DL (3.4-5.0); Alkaline Phosphatase 97 U/L (45-117); Aspartate Amino Transferase 94 U/L (0-37); Blood Urea Nitrogen 42 MG/DL (7-18); Calcium 9.4 MG/DL (8.5-10.1); Estimated Glom Filtration Rate 39 ML/MIN; Glucose 82 MG/DL (74-106); Osmolality,Calculated 273.5 MOS/KG (273-304); Total Protein 8.2 G/DL (6.4-8.3)
[2019-12-04] MEDS ORDERED: GLUCAGON 1 MG VIAL IM PRN (18:11)
[2019-12-04] MEDS ORDERED: ONDANSETRON 4 MG/2 ML VIAL IV PRN (18:11)
[2019-12-04] MEDS ORDERED: DEXTROSE 10% 250 ML BAG IV PRN (18:11)
[2019-12-04] MEDS ORDERED: ACETAMINOPHEN 325 MG TABLET PO PRN (18:11)
[2019-12-04 18:33] LABS: Hypochromasia Slight; Microcytosis Slight; Platelet Estimate Adequate
[2019-12-04] MEDS: SODIUM CHLORIDE 0.9% 1,000 ML IV SCH (19:11)
[2019-12-05] MEDS ORDERED: IBUPROFEN 800 MG TABLET PO PRN (02:30)
[2019-12-05] MEDS ORDERED: tiZANidine 4 MG TABLET PO PRN (02:30)
[2019-12-05] MEDS ORDERED: traZODone 50 MG TABLET PO SCH (02:30)
[2019-12-05] MEDS ORDERED: DEXTROSE 10% 250 ML BAG IV PRN (02:30)
[2019-12-05] MEDS ORDERED: MAGNESIUM HYDROXIDE SUSP 30 ML UDCUP PO PRN (02:30)
[2019-12-05] MEDS ORDERED: GLUCAGON 1 MG VIAL IM PRN (02:30)
[2019-12-05] MEDS: ENOXAPARIN 40 MG/0.4 ML SYRINGE SUBCUT SCH ×2 (03:26→21:35)
[2019-12-05] MEDS: ATORVASTATIN 20 MG TABLET PO SCH ×2 (03:39→21:42)
[2019-12-05] MEDS: POLYVINYL ALCOHOL 1.4% OPH SOLN 15 ML BOTTLE BOTH EYES SCH ×3 (05:47→21:41)
[2019-12-05] MEDS: PANTOPRAZOLE 40 MG TABLET PO SCH (05:47)
[2019-12-05] MEDS: PRAMIPEXOLE 1 MG TABLET PO SCH ×2 (05:47→15:57)
[2019-12-05 07:46] LABS: Basophils % 0.2 % (0.0-0.8); Hematocrit 36.3 VOL% (35.7-47.0); Hemoglobin 12.8 GM/DL (12.0-16.0); Immature Granulocytes % 0.6 %; Immature Granulocytes Absolute 0.03 #; Lymphocytes # 0.8 10*3/uL (1.4-4.0); Lymphocytes % 15.6 % (21.3-54.2); Mean Corpuscular HGB Conc 35.3 GM/DL (32-36); Mean Corpuscular Volume 81.6 FL (87-102); Monocytes % 8.2 % (1.7-12.7); Neutrophils % 75.4 % (38.7-73.9); Platelet Count 247 T/CUMM (130-400); Red Blood Count 4.45 MC/CUMM (3.8-5.5)
[2019-12-05] MEDS ORDERED: tiZANidine 4 MG TABLET PO SCH (08:00)
[2019-12-05] MEDS ORDERED: FUROSEMIDE 20 MG TABLET PO SCH (08:00)
[2019-12-05] MEDS ORDERED: POTASSIUM CHLORIDE 8 MEQ CAPSULE PO SCH (08:00)
[2019-12-05] MEDS ORDERED: TRIAMTERENE/HCTZ 37.5-25 MG TABLET PO SCH (08:00)
[2019-12-05 08:08] LABS: Albumin 3.5 G/DL (3.4-5.0); Bilirubin,Total 1.2 MG/DL (0.2-1.0); Calcium 9.1 MG/DL (8.5-10.1); Osmolality,Calculated 270.4 MOS/KG (273-304); Total Protein 7.8 G/DL (6.4-8.3)
[2019-12-05] MEDS: MAGNESIUM OXIDE 400 MG TABLET PO SCH (09:08)
[2019-12-05] MEDS: allopurinoL 100 MG TABLET PO SCH (09:09)
[2019-12-05] MEDS: ENTACAPONE 200 MG TABLET PO SCH ×3 (09:09→17:09)
[2019-12-05] MEDS: CARBIDOPA/LEVODOPA 25-100 MG TABLET PO SCH ×3 (09:09→17:10)
[2019-12-05] MEDS: FLUTICASONE 50 MCG NASAL SPRAY 16 GM BOTTLE BOTH NARES SCH (10:36)
[2019-12-05] MEDS: INSULIN REGULAR 100 UNIT/ML SUBCUT SCH ×2 (10:55→15:43)
[2019-12-05] MEDS ORDERED: SODIUM CHLORIDE 0.9% 1,000 ML IV SCH (11:00)
[2019-12-05 12:01] LABS: Eosinophils % 0.2 % (0.00-10.9); Hematocrit 33.6 VOL% (35.7-47.0); Hemoglobin 11.8 GM/DL (12.0-16.0); Immature Granulocytes % 1.2 %; Immature Granulocytes Absolute 0.05 #; Lymphocytes # 0.6 10*3/uL (1.4-4.0); Lymphocytes % 13.5 % (21.3-54.2); Mean Corpuscular HGB Conc 35.1 GM/DL (32-36); Mean Corpuscular Volume 82.8 FL (87-102); Monocytes % 7.1 % (1.7-12.7); Platelet Count 245 T/CUMM (130-400); Red Blood Count 4.06 MC/CUMM (3.8-5.5); Red Cell Distribution Width 15.1 % (9.3-17.3); White Blood Count 4.1 T/CUMM (4-12)
[2019-12-05 12:14] LABS: Albumin 3.1 G/DL (3.4-5.0); Bilirubin,Total 0.7 MG/DL (0.2-1.0); Calcium 8.2 MG/DL (8.5-10.1); Osmolality,Calculated 273.2 MOS/KG (273-304); Total Protein 7.1 G/DL (6.4-8.3)
[2019-12-05 12:29] LABS: PT Patient Result 10.8 SECS (9.8-11.9); Partial Thromboplastin Time 32.6 SECS (23.9-33.8)
[2019-12-05] MEDS: SODIUM CHLORIDE 0.9% 1,000 ML IV SCH (16:00)
[2019-12-05 17:54] LABS: ABG Base Excess -0.2 MMOL/L (-2.5-2.5); ABG HCO3 21.9 MMOL/L (20-26); ABG Oxygen Saturation 95.2 % (95-100); ABG PCO2 28.7 MM HG (35-48); ABG PH 7.501 (7.35-7.45); ABG PO2 75.5 MM HG (80-95); ABG TCO2 22.8 MMOL/L (23-27)
[2019-12-05] MEDS: metFORMIN 500 MG TABLET PO SCH (21:41)
[2019-12-05] MEDS: LATANOPROST 0.005% OPH SOLN 2.5 ML BOTTLE BOTH EYES SCH (21:41)
[2019-12-06] MEDS: CARBIDOPA/LEVODOPA 25-100 MG TABLET PO SCH ×5 (00:53→23:24)
[2019-12-06] MEDS: ENTACAPONE 200 MG TABLET PO SCH ×5 (00:53→23:24)
[2019-12-06] MEDS: SODIUM CHLORIDE 0.9% 1,000 ML IV SCH ×2 (04:09→05:40)
[2019-12-06 05:54] LABS: Basophils % 0.2 % (0.0-0.8); Hematocrit 33.7 VOL% (35.7-47.0); Hemoglobin 12.1 GM/DL (12.0-16.0); Immature Granulocytes % 1.2 %; Immature Granulocytes Absolute 0.06 #; Lymphocytes # 0.8 10*3/uL (1.4-4.0); Lymphocytes % 15.6 % (21.3-54.2); Mean Corpuscular HGB Conc 35.9 GM/DL (32-36); Mean Corpuscular Volume 80.8 FL (87-102); Monocytes % 8.9 % (1.7-12.7); Neutrophils % 74.1 % (38.7-73.9); Platelet Count 256 T/CUMM (130-400); Red Blood Count 4.17 MC/CUMM (3.8-5.5); White Blood Count 5.2 T/CUMM (4-12)
[2019-12-06 06:04] LABS: Calcium 8.3 MG/DL (8.5-10.1); Osmolality,Calculated 275.8 MOS/KG (273-304)
[2019-12-06] MEDS: PANTOPRAZOLE 40 MG TABLET PO SCH (06:41)
[2019-12-06] MEDS: POLYVINYL ALCOHOL 1.4% OPH SOLN 15 ML BOTTLE BOTH EYES SCH ×3 (06:43→21:14)
[2019-12-06] MEDS: INSULIN REGULAR 100 UNIT/ML SUBCUT SCH ×2 (08:11→15:46)
[2019-12-06] MEDS ORDERED: MAGNESIUM SULF RIDER 2 GM in PREMIX 1 EACH IV PRN (09:44)
[2019-12-06] MEDS ORDERED: POTASSIUM CHLORIDE 20 MEQ TABLET PO PRN (09:44)
[2019-12-06] MEDS ORDERED: MAGNESIUM SULF RIDER 4 GM in PREMIX 1 EACH IV PRN (09:44)
[2019-12-06] MEDS: MAGNESIUM OXIDE 400 MG TABLET PO SCH (09:55)
[2019-12-06] MEDS: metFORMIN 500 MG TABLET PO SCH ×2 (09:55→21:14)
[2019-12-06] MEDS: FLUTICASONE 50 MCG NASAL SPRAY 16 GM BOTTLE BOTH NARES SCH (09:56)
[2019-12-06] MEDS: allopurinoL 100 MG TABLET PO SCH (09:56)
[2019-12-06] MEDS: POTASSIUM CHLORIDE 20 MEQ/15 ML UDCUP PER TUBE PRN ×2 (12:10→16:10)
[2019-12-06] MEDS: LATANOPROST 0.005% OPH SOLN 2.5 ML BOTTLE BOTH EYES SCH (21:15)
[2019-12-06] MEDS: ATORVASTATIN 20 MG TABLET PO SCH (21:15)
[2019-12-06] MEDS: ENOXAPARIN 40 MG/0.4 ML SYRINGE SUBCUT SCH (21:15)
[2019-12-07] MEDS: PANTOPRAZOLE 40 MG TABLET PO SCH (05:47)
[2019-12-07] MEDS: POLYVINYL ALCOHOL 1.4% OPH SOLN 15 ML BOTTLE BOTH EYES SCH ×2 (05:47→16:45)
[2019-12-07 07:33] LABS: Basophils % 0.3 % (0.0-0.8); Eosinophils % 0.2 % (0.00-10.9); Hematocrit 34.6 VOL% (35.7-47.0); Hemoglobin 12.2 GM/DL (12.0-16.0); Immature Granulocytes % 0.8 %; Immature Granulocytes Absolute 0.05 #; Lymphocytes # 0.7 10*3/uL (1.4-4.0); Lymphocytes % 11.8 % (21.3-54.2); Mean Corpuscular HGB Conc 35.3 GM/DL (32-36); Mean Corpuscular Volume 81.4 FL (87-102); Monocytes % 7.9 % (1.7-12.7); Platelet Count 293 T/CUMM (130-400); Red Blood Count 4.25 MC/CUMM (3.8-5.5); Red Cell Distribution Width 15.3 % (9.3-17.3)
[2019-12-07] MEDS: INSULIN REGULAR 100 UNIT/ML SUBCUT SCH (07:43)
[2019-12-07 07:57] LABS: Calcium 8.5 MG/DL (8.5-10.1); Osmolality,Calculated 271.8 MOS/KG (273-304)
[2019-12-07] MEDS: ENTACAPONE 200 MG TABLET PO SCH (08:00)
[2019-12-07] MEDS: CARBIDOPA/LEVODOPA 25-100 MG TABLET PO SCH (08:00)
[2019-12-07] MEDS: allopurinoL 100 MG TABLET PO SCH (10:53)
[2019-12-07] MEDS: metFORMIN 500 MG TABLET PO SCH (10:53)
[2019-12-07] MEDS: MAGNESIUM OXIDE 400 MG TABLET PO SCH (10:53)
[2019-12-07] MEDS: FLUTICASONE 50 MCG NASAL SPRAY 16 GM BOTTLE BOTH NARES SCH (10:55)
[2019-12-07] MEDS: POTASSIUM CHLORIDE 20 MEQ/15 ML UDCUP PER TUBE PRN (12:11)
[2019-12-07 12:35] VITALS: BP 142/74
[2019-12-07] MEDS ORDERED: ENTACAPONE 200 MG TABLET PO SCH (14:00)
[2019-12-07] MEDS ORDERED: CARBIDOPA/LEVODOPA 25-100 MG TABLET PO SCH (14:00)
[2019-12-07] MEDS: SODIUM CHLORIDE 0.9% 1,000 ML IV SCH ×2 (16:45→16:46)
== END 2019-12-07 17:41 | disposition home or self-care (01) | DRG 56 ==
LOC: EDUNIT# → EDBD → N.ED 14:27 → N.EDINP 14:27 → N.3E 12-05 01:50 → N.2E 12-07 12:33
PROVIDERS: ADMIT Internal Medicine; ATTEND Internal Medicine

== ENCOUNTER 2021-10-28 21:53 | Inpatient (IN) ==
[2021-10-28] MEDS ORDERED: PIPERACILLIN/TAZOBACTAM 3,375 MG in SODIUM CHLORIDE 0.9% 100 ML IV STA (22:28)
[2021-10-28] MEDS ORDERED: SODIUM CHLORIDE 0.9% 1,000 ML IV STA (22:28)
[2021-10-28] MEDS ORDERED: VANCOMYCIN INJ 1,000 MG in SODIUM CHLORIDE 0.9% 250 ML IV STA ×2 (22:32→22:36)
[2021-10-28] MEDS ORDERED: SODIUM CHLORIDE 0.9% 1,850 ML IV ONE (22:32)
[2021-10-28 22:38] LABS: Basophils # 0.1 10*3/uL (0.0-0.2); Basophils % 0.2 % (0.0-0.8); Hematocrit 36.5 VOL% (35.7-47.0); Hemoglobin 12.4 GM/DL (12.0-16.0); Immature Granulocytes % 3.4 %; Immature Granulocytes Absolute 0.95 #; Lymphocytes # 0.5 10*3/uL (1.4-4.0); Lymphocytes % 1.8 % (21.3-54.2); Mean Platelet Volume 12.9 FL (9.6-12.0); Monocytes # 1.2 10*3/uL (0.11-0.8); Monocytes % 4.2 % (1.7-12.7); Neutrophils % 90.4 % (38.7-73.9); Platelet Count 179 T/CUMM (130-400); Red Cell Distribution Width 15.4 % (9.3-17.3)
[2021-10-28 22:44] LABS: Bacteria,Urine Many /HPF (Few); Hyaline Casts,Urine 1 /LPF (0-3); Mucus,Urine Occasional /LPF (Occasional); RBC,Urine 1 /HPF (0-4); Squamous Epithelial Cell,Urine Occasional /HPF (0-10)
[2021-10-28 22:46] LABS: Bilirubin,Urine Negative (Negative); Blood, Urine Negative (Negative); Glucose,Urine (UA) Negative (Negative); Ketones,Urine Negative (Negative); Nitrite,Urine Negative (Negative); Protein,Urine Negative (Negative); Urine Appearance Clear (Clear); Urine Color Dark Yellow (Yellow); Urine Specific Gravity 1.015 (1.001-1.035); Urine Urobilinogen 0.2 eU/dL (<2.0)
[2021-10-28 22:49] LABS: INR 1.1; PT Patient Result 12.2 SECS (10.5-12.0); Partial Thromboplastin Time 30.4 SECS (23.8-32.1)
[2021-10-28 23:08] LABS: Alanine Aminotransferase 9 U/L (13-56); Albumin 3.4 G/DL (3.4-5.0); Alkaline Phosphatase 94 U/L (45-117); Amylase 36 U/L (25-115); Aspartate Amino Transferase 25 U/L (0-37); Blood Urea Nitrogen 40 MG/DL (7-18); Calcium 9.2 MG/DL (8.5-10.1); Carbon Dioxide 21 MMOL/L (21-32); Chloride 108 MMOL/L (98-107); Estimated Glom Filtration Rate 23 ML/MIN; Glucose 139 MG/DL (74-106); Osmolality,Calculated 292.3 MOS/KG (273-304); Potassium 3.9 MMOL/L (3.5-5.1); Sodium 141 MMOL/L (136-145); Total Protein 7.6 G/DL (6.4-8.2)
[2021-10-28 23:16] LABS: Lymphocytes 4 % (20-55); Platelet Estimate Adequate; Total Cells Counted 100
[2021-10-29] MEDS ORDERED: LORazepam 2 MG/1 ML VIAL ONE (01:21)
[2021-10-29] MEDS ORDERED: LORazepam 2 MG/1 ML VIAL IV STA (01:23)
[2021-10-29] MEDS ORDERED: ACETAMINOPHEN 650 MG SUPP RECTAL STA (01:30)
[2021-10-29] MEDS ORDERED: DEXTROSE 10% 250 ML BAG IV PRN (02:18)
[2021-10-29] MEDS ORDERED: GLUCAGON 1 MG VIAL IM PRN (02:18)
[2021-10-29] MEDS ORDERED: SODIUM CHLORIDE 0.9% 1,000 ML IV SCH (02:30)
[2021-10-29] MEDS ORDERED: SODIUM CHLORIDE 0.9% 500 ML IV STA (03:05)
[2021-10-29] MEDS ORDERED: MAGNESIUM SULF RIDER 2 GM/50 ML PREMIX IV ONE (03:12)
[2021-10-29] MEDS ORDERED: VANCOMYCIN INJ 1,250 MG in SODIUM CHLORIDE 0.9% 250 ML IV PRN (03:26)
[2021-10-29] MEDS: cefTRIAXone 2,000 MG in SODIUM CHLORIDE 0.9% 100 ML IV SCH ×2 (03:35→16:05)
[2021-10-29] MEDS: AMPICILLIN INJ 2,000 MG in SODIUM CHLORIDE 0.9% 100 ML IV SCH ×3 (03:47→20:38)
[2021-10-29] MEDS ORDERED: NOREPINEPHRINE 4 MG/4 ML VIAL IV ONE (04:05)
[2021-10-29] MEDS: NOREPINEPHRINE 8 MG in SODIUM CHLORIDE 0.9% 242 ML IV PRN ×3 (04:18→16:09)
[2021-10-29 04:32] LABS: Basophils % 0.2 % (0.0-0.8); Hematocrit 27.8 VOL% (35.7-47.0); Hemoglobin 9.7 GM/DL (12.0-16.0); Immature Granulocytes % 2.2 %; Immature Granulocytes Absolute 0.29 #; Lymphocytes # 0.3 10*3/uL (1.4-4.0); Lymphocytes % 2.2 % (21.3-54.2); Mean Corpuscular HGB Conc 34.9 GM/DL (32-36); Mean Corpuscular Volume 82.7 FL (87-102); Mean Platelet Volume 12.9 FL (9.6-12.0); Monocytes # 0.3 10*3/uL (0.11-0.8); Monocytes % 2.2 % (1.7-12.7); Neutrophils % 93.2 % (38.7-73.9); Platelet Count 119 T/CUMM (130-400); Red Blood Count 3.36 MC/CUMM (3.8-5.5); Red Cell Distribution Width 15.8 % (9.3-17.3); White Blood Count 13.4 T/CUMM (4-12)
[2021-10-29] MEDS ORDERED: SODIUM CHLORIDE 0.9% IV SCH (05:00)
[2021-10-29] MEDS ORDERED: ACYCLOVIR IV SCH (05:00)
[2021-10-29 05:02] LABS: Calcium 7.5 MG/DL (8.5-10.1); Osmolality,Calculated 296.8 MOS/KG (273-304); Potassium 3.3 MMOL/L (3.5-5.1)
[2021-10-29 05:19] LABS: Eosinophils 2 % (0-10); Lymphocytes 6 % (20-55); Myelocytes 6 %
[2021-10-29 05:20] LABS: Platelet Estimate Adequate; Total Cells Counted 100
[2021-10-29] MEDS ORDERED: VANCOMYCIN INJ 2,000 MG in SODIUM CHLORIDE 0.9% 500 ML IV ONE (06:00)
[2021-10-29] MEDS: LACTATED RINGERS 1,000 ML IV SCH ×3 (06:30→17:29)
[2021-10-29] MEDS ORDERED: SODIUM BICARBONATE 50 MEQ/50 ML VIAL IV ONE ×2 (06:36→09:49)
[2021-10-29 07:47] LABS: ABG Base Excess -7.8 MMOL/L (-2.5-2.5); ABG HCO3 18.1 MMOL/L (20-26); ABG Oxygen Saturation 97.8 % (95-100); ABG PCO2 31.5 MM HG (35-48); ABG PH 7.341 (7.35-7.45); ABG TCO2 15.5 MMOL/L (23-27)
[2021-10-29] MEDS: INSULIN LISPRO 100 UNIT/ML SUBCUT SCH ×3 (08:41→17:37)
[2021-10-29 08:47] LABS: Free T4 (Free Thyroxine) 1.09 NG/DL (0.76-1.46); Thyroid Stimulating Hormone 1.65 uIU/ml (0.358-3.74)
[2021-10-29] MEDS: HYDROCORTISONE 100 MG VIAL IV SCH ×3 (09:07→21:15)
[2021-10-29] MEDS: POTASSIUM CHLORIDE RIDER 10 MEQ/100 ML PREMIX IV SCH ×2 (09:11→10:15)
[2021-10-29 11:58] LABS: Calcium 7.6 MG/DL (8.5-10.1); Osmolality,Calculated 301.4 MOS/KG (273-304); Potassium 3.5 MMOL/L (3.5-5.1)
[2021-10-30] MEDS: INSULIN LISPRO 100 UNIT/ML SUBCUT SCH ×5 (00:54→23:46)
[2021-10-30] MEDS: LACTATED RINGERS 1,000 ML IV SCH ×4 (00:54→22:14)
[2021-10-30] MEDS: cefTRIAXone 2,000 MG in SODIUM CHLORIDE 0.9% 100 ML IV SCH (03:37)
[2021-10-30] MEDS: AMPICILLIN INJ 2,000 MG in SODIUM CHLORIDE 0.9% 100 ML IV SCH (03:37)
[2021-10-30 03:40] LABS: ABG HCO3 24.4 MMOL/L (20-26); ABG PCO2 38.8 MM HG (35-48); ABG PH 7.407 (7.35-7.45); ABG TCO2 21.8 MMOL/L (23-27)
[2021-10-30 03:47] LABS: Basophils # 0.2 10*3/uL (0.0-0.2); Basophils % 0.6 % (0.0-0.8); Hemoglobin 9.8 GM/DL (12.0-16.0); Immature Granulocytes % 7.3 %; Immature Granulocytes Absolute 1.83 #; Lymphocytes # 0.3 10*3/uL (1.4-4.0); Mean Corpuscular Volume 81.6 FL (87-102); Mean Platelet Volume 13.8 FL (9.6-12.0); Monocytes # 0.6 10*3/uL (0.11-0.8); Monocytes % 2.2 % (1.7-12.7); Neutrophils % 88.9 % (38.7-73.9); Platelet Count 94 T/CUMM (130-400); Red Blood Count 3.43 MC/CUMM (3.8-5.5); Red Cell Distribution Width 15.9 % (9.3-17.3); White Blood Count 25.1 T/CUMM (4-12)
[2021-10-30 04:11] LABS: Albumin 2.1 G/DL (3.4-5.0); Bilirubin,Total 0.4 MG/DL (0.20-1.00); Calcium 7.7 MG/DL (8.5-10.1); Osmolality,Calculated 304.3 MOS/KG (273-304); Phosphorous 3.7 MG/DL (2.5-4.9); Potassium 3.6 MMOL/L (3.5-5.1); Total Protein 5.7 G/DL (6.4-8.2)
[2021-10-30 04:12] LABS: Lymphocytes 15 % (20-55); Total Cells Counted 100
[2021-10-30 04:13] LABS: Platelet Estimate Adequate
[2021-10-30] MEDS ORDERED: SODIUM CHLORIDE 0.9% IV SCH (05:00)
[2021-10-30] MEDS ORDERED: ACYCLOVIR IV SCH (05:00)
[2021-10-30] MEDS: HYDROCORTISONE 100 MG VIAL IV SCH ×3 (06:10→21:01)
[2021-10-30] MEDS: MEROPENEM 500 MG in SODIUM CHLORIDE 0.9% 100 ML IV SCH ×2 (08:16→21:00)
[2021-10-30] MEDS: PRAMIPEXOLE 1 MG TABLET PO SCH ×2 (16:36→21:03)
[2021-10-30] MEDS: CARBIDOPA/LEVODOPA 25-100 MG TABLET PO SCH ×2 (16:37→21:00)
[2021-10-30] MEDS: ENTACAPONE 200 MG TABLET PO SCH ×2 (16:42→21:01)
[2021-10-30] MEDS: LORazepam 1 MG TABLET PO SCH (21:00)
[2021-10-30] MEDS: MEMANTINE 10 MG TABLET PO SCH (21:00)
[2021-10-30] MEDS: DIVALPROEX ER 250 MG TABLET PO SCH (21:00)
[2021-10-30] MEDS: PANTOPRAZOLE 40 MG VIAL IV SCH (21:01)
[2021-10-30] MEDS: POLYVINYL ALCOHOL 1.4% OPH SOLN 15 ML BOTTLE BOTH EYES SCH (21:02)
[2021-10-30] MEDS: CLOTRIMAZOLE 1% CREAM 15 GM TUBE TOP SCH (21:02)
[2021-10-30] MEDS: LATANOPROST 0.005% OPH SOLN 2.5 ML BOTTLE BOTH EYES SCH (21:06)
[2021-10-31] MEDS ORDERED: LORazepam 2 MG/1 ML VIAL IV ONE (03:57)
[2021-10-31] MEDS ORDERED: LORazepam 2 MG/1 ML VIAL ONE (04:00)
[2021-10-31 04:23] LABS: Basophils % 0.2 % (0.0-0.8); Hematocrit 27.9 VOL% (35.7-47.0); Hemoglobin 9.7 GM/DL (12.0-16.0); Immature Granulocytes % 0.4 %; Lymphocytes # 0.5 10*3/uL (1.4-4.0); Lymphocytes % 2.4 % (21.3-54.2); Mean Corpuscular HGB Conc 34.8 GM/DL (32-36); Mean Corpuscular Volume 81.6 FL (87-102); Mean Platelet Volume 13.5 FL (9.6-12.0); Monocytes # 0.4 10*3/uL (0.11-0.8); Monocytes % 1.9 % (1.7-12.7); Neutrophils % 95.1 % (38.7-73.9); Platelet Count 92 T/CUMM (130-400); Red Blood Count 3.42 MC/CUMM (3.8-5.5); Red Cell Distribution Width 15.9 % (9.3-17.3); White Blood Count 22.2 T/CUMM (4-12)
[2021-10-31 04:46] LABS: Calcium 8.3 MG/DL (8.5-10.1); Osmolality,Calculated 307.1 MOS/KG (273-304); Potassium 3.3 MMOL/L (3.5-5.1)
[2021-10-31] MEDS: INSULIN LISPRO 100 UNIT/ML SUBCUT SCH ×3 (05:02→17:32)
[2021-10-31] MEDS: LACTATED RINGERS 1,000 ML IV SCH ×4 (05:22→20:40)
[2021-10-31 05:26] LABS: Lymphocytes 3 % (20-55); Total Cells Counted 100
[2021-10-31 05:27] LABS: Burr Cells 1+; Platelet Estimate Decreased; Polychromasia 1+; Target Cells 1+
[2021-10-31] MEDS ORDERED: POTASSIUM BICARB EFFERVESCENT 20 MEQ TAB.EFF PER TUBE ONE (05:48)
[2021-10-31] MEDS: HYDROCORTISONE 100 MG VIAL IV SCH ×3 (05:57→21:16)
[2021-10-31] MEDS: PRAMIPEXOLE 1 MG TABLET PO SCH ×3 (05:58→21:15)
[2021-10-31] MEDS: POLYVINYL ALCOHOL 1.4% OPH SOLN 15 ML BOTTLE BOTH EYES SCH ×3 (05:58→21:16)
[2021-10-31] MEDS: LORazepam 1 MG TABLET PO SCH ×2 (09:12→21:16)
[2021-10-31] MEDS: allopurinoL 100 MG TABLET PO SCH (09:12)
[2021-10-31] MEDS: CARBIDOPA/LEVODOPA 25-100 MG TABLET PO SCH ×4 (09:12→21:16)
[2021-10-31] MEDS: ENTACAPONE 200 MG TABLET PO SCH ×4 (09:12→21:15)
[2021-10-31] MEDS: PANTOPRAZOLE 40 MG VIAL IV SCH (09:13)
[2021-10-31] MEDS: MEROPENEM 500 MG in SODIUM CHLORIDE 0.9% 100 ML IV SCH ×2 (09:15→21:15)
[2021-10-31] MEDS: MEMANTINE 10 MG TABLET PO SCH ×2 (09:16→21:15)
[2021-10-31] MEDS: CLOTRIMAZOLE 1% CREAM 15 GM TUBE TOP SCH ×2 (11:25→21:35)
[2021-10-31] MEDS: VALPROIC ACID 250 MG/5 ML UDCUP PO SCH (21:15)
[2021-10-31] MEDS: LATANOPROST 0.005% OPH SOLN 2.5 ML BOTTLE BOTH EYES SCH (21:17)
[2021-10-31] MEDS: DIVALPROEX ER 250 MG TABLET PO SCH (23:03)
[2021-11-01] MEDS: INSULIN LISPRO 100 UNIT/ML SUBCUT SCH ×4 (00:03→17:53)
[2021-11-01] MEDS: LACTATED RINGERS 1,000 ML IV SCH ×4 (00:43→16:12)
[2021-11-01 04:32] LABS: Basophils % 0.1 % (0.0-0.8); Hemoglobin 9.4 GM/DL (12.0-16.0); Immature Granulocytes Absolute 0.16 #; Lymphocytes # 0.5 10*3/uL (1.4-4.0); Lymphocytes % 3.3 % (21.3-54.2); Mean Corpuscular HGB Conc 34.8 GM/DL (32-36); Mean Corpuscular Volume 81.1 FL (87-102); Monocytes # 0.7 10*3/uL (0.11-0.8); Monocytes % 4.2 % (1.7-12.7); NRBC # 0.02 10*3/uL; Neutrophils % 91.4 % (38.7-73.9); Platelet Count 93 T/CUMM (130-400); Red Blood Count 3.33 MC/CUMM (3.8-5.5); Red Cell Distribution Width 15.9 % (9.3-17.3); White Blood Count 16.1 T/CUMM (4-12)
[2021-11-01 04:49] LABS: Hypochromia 1+; Lymphocytes 4 % (20-55); Microcytosis 1+; Total Cells Counted 100
[2021-11-01 04:53] LABS: Osmolality,Calculated 316.7 MOS/KG (273-304); Phosphorous 2.7 MG/DL (2.5-4.9); Potassium 3.5 MMOL/L (3.5-5.1)
[2021-11-01 04:54] LABS: Calcium 7.8 MG/DL (8.5-10.1); Osmolality,Calculated 317.7 MOS/KG (273-304); Potassium 3.6 MMOL/L (3.5-5.1)
[2021-11-01] MEDS: POLYVINYL ALCOHOL 1.4% OPH SOLN 15 ML BOTTLE BOTH EYES SCH ×3 (05:58→21:22)
[2021-11-01] MEDS: HYDROCORTISONE 100 MG VIAL IV SCH ×3 (05:58→21:21)
[2021-11-01] MEDS: PRAMIPEXOLE 1 MG TABLET PO SCH ×3 (05:58→21:21)
[2021-11-01] MEDS: CARBIDOPA/LEVODOPA 25-100 MG TABLET PO SCH ×4 (09:31→21:20)
[2021-11-01] MEDS: ENTACAPONE 200 MG TABLET PO SCH ×4 (09:31→21:20)
[2021-11-01] MEDS: VALPROIC ACID 250 MG/5 ML UDCUP PO SCH ×2 (09:31→21:20)
[2021-11-01] MEDS: allopurinoL 100 MG TABLET PO SCH (09:32)
[2021-11-01] MEDS: PANTOPRAZOLE 40 MG VIAL IV SCH (09:32)
[2021-11-01] MEDS: LORazepam 1 MG TABLET PO SCH ×2 (09:32→21:21)
[2021-11-01] MEDS: CLOTRIMAZOLE 1% CREAM 15 GM TUBE TOP SCH ×2 (09:33→21:22)
[2021-11-01] MEDS: MEROPENEM 500 MG in SODIUM CHLORIDE 0.9% 100 ML IV SCH ×2 (09:34→21:21)
[2021-11-01] MEDS: MEMANTINE 10 MG TABLET PO SCH ×2 (09:38→21:24)
[2021-11-01] MEDS: FONDAPARINUX 2.5 MG/0.5 ML SYRINGE SUBCUT SCH (12:15)
[2021-11-01] MEDS: LATANOPROST 0.005% OPH SOLN 2.5 ML BOTTLE BOTH EYES SCH (21:22)
[2021-11-02] MEDS: INSULIN LISPRO 100 UNIT/ML SUBCUT SCH ×4 (00:50→17:33)
[2021-11-02 04:20] LABS: Basophils % 0.2 % (0.0-0.8); Hematocrit 28.6 VOL% (35.7-47.0); Hemoglobin 9.8 GM/DL (12.0-16.0); Immature Granulocytes % 4.6 %; Immature Granulocytes Absolute 0.51 #; Lymphocytes # 0.6 10*3/uL (1.4-4.0); Lymphocytes % 5.2 % (21.3-54.2); Mean Corpuscular HGB Conc 34.3 GM/DL (32-36); Mean Corpuscular Volume 81.5 FL (87-102); Mean Platelet Volume 13.3 FL (9.6-12.0); Monocytes % 9.1 % (1.7-12.7); Neutrophils % 80.9 % (38.7-73.9); Platelet Count 104 T/CUMM (130-400); Red Blood Count 3.51 MC/CUMM (3.8-5.5); White Blood Count 11.1 T/CUMM (4-12)
[2021-11-02 04:38] LABS: Calcium 8.1 MG/DL (8.5-10.1); Osmolality,Calculated 315.7 MOS/KG (273-304); Potassium 3.4 MMOL/L (3.5-5.1)
[2021-11-02 04:41] LABS: Band Neutrophils 1 % (0-10); Eosinophils 1 % (0-10); Lymphocytes 7 % (20-55); Total Cells Counted 100
[2021-11-02 04:42] LABS: Hypochromia Slight; Microcytosis Slight
[2021-11-02] MEDS: LACTATED RINGERS 1,000 ML IV SCH (05:48)
[2021-11-02] MEDS: POLYVINYL ALCOHOL 1.4% OPH SOLN 15 ML BOTTLE BOTH EYES SCH ×3 (06:30→21:00)
[2021-11-02] MEDS: PRAMIPEXOLE 1 MG TABLET PO SCH ×3 (06:30→21:00)
[2021-11-02] MEDS: HYDROCORTISONE 100 MG VIAL IV SCH ×3 (06:30→21:00)
[2021-11-02] MEDS: allopurinoL 100 MG TABLET PO SCH (09:19)
[2021-11-02] MEDS: MEMANTINE 10 MG TABLET PO SCH ×2 (09:19→20:57)
[2021-11-02] MEDS: ENTACAPONE 200 MG TABLET PO SCH ×4 (09:19→20:57)
[2021-11-02] MEDS: VALPROIC ACID 250 MG/5 ML UDCUP PO SCH ×2 (09:19→20:57)
[2021-11-02] MEDS: POTASSIUM BICARB EFFERVESCENT 20 MEQ TAB.EFF PO PRN ×3 (09:19→16:15)
[2021-11-02] MEDS: MEROPENEM 500 MG in SODIUM CHLORIDE 0.9% 100 ML IV SCH ×2 (09:19→20:00)
[2021-11-02] MEDS: FONDAPARINUX 2.5 MG/0.5 ML SYRINGE SUBCUT SCH (09:19)
[2021-11-02] MEDS: CARBIDOPA/LEVODOPA 25-100 MG TABLET PO SCH ×4 (09:19→20:57)
[2021-11-02] MEDS: PANTOPRAZOLE 40 MG VIAL IV SCH (09:21)
[2021-11-02] MEDS: LORazepam 1 MG TABLET PO SCH ×2 (09:23→21:17)
[2021-11-02] MEDS: CLOTRIMAZOLE 1% CREAM 15 GM TUBE TOP SCH ×2 (09:24→20:57)
[2021-11-02] MEDS: LATANOPROST 0.005% OPH SOLN 2.5 ML BOTTLE BOTH EYES SCH (20:57)
[2021-11-03] MEDS: INSULIN LISPRO 100 UNIT/ML SUBCUT SCH ×4 (00:46→18:08)
[2021-11-03 05:03] LABS: Basophils % 0.2 % (0.0-0.8); Eosinophils # 0.1 10*3/uL (0.0-0.87); Eosinophils % 0.6 % (0.00-10.9); Hematocrit 28.3 VOL% (35.7-47.0); Hemoglobin 9.7 GM/DL (12.0-16.0); Immature Granulocytes % 6.4 %; Mean Corpuscular HGB Conc 34.3 GM/DL (32-36); Mean Corpuscular Volume 81.8 FL (87-102); Mean Platelet Volume 13.1 FL (9.6-12.0); Monocytes # 1.7 10*3/uL (0.11-0.8); Monocytes % 13.6 % (1.7-12.7); NRBC # 0.04 10*3/uL; Neutrophils % 71.2 % (38.7-73.9); Red Blood Count 3.46 MC/CUMM (3.8-5.5); Red Cell Distribution Width 16.1 % (9.3-17.3); White Blood Count 12.5 T/CUMM (4-12)
[2021-11-03 05:04] LABS: Platelet Count 133 T/CUMM (130-400)
[2021-11-03 05:25] LABS: Calcium 7.6 MG/DL (8.5-10.1); Osmolality,Calculated 314.6 MOS/KG (273-304); Potassium 3.3 MMOL/L (3.5-5.1)
[2021-11-03 05:27] LABS: Band Neutrophils 1 % (0-10); Calcium 7.2 MG/DL (8.5-10.1); Lymphocytes 12 % (20-55); Metamyelocytes 2 %; Nucleated Red Blood Cells 1 (0-5); Osmolality,Calculated 319.3 MOS/KG (273-304); Phosphorous 2.1 MG/DL (2.5-4.9); Potassium 3.6 MMOL/L (3.5-5.1); Total Cells Counted 100
[2021-11-03 05:28] LABS: Hypochromia 1+; Microcytosis 1+; Polychromasia Slight; Target Cells Slight
[2021-11-03 05:29] LABS: Platelet Estimate Adequate
[2021-11-03] MEDS: HYDROCORTISONE 100 MG VIAL IV SCH ×3 (06:27→21:06)
[2021-11-03] MEDS: POLYVINYL ALCOHOL 1.4% OPH SOLN 15 ML BOTTLE BOTH EYES SCH ×3 (06:27→21:08)
[2021-11-03] MEDS: PRAMIPEXOLE 1 MG TABLET PO SCH ×3 (06:27→21:07)
[2021-11-03] MEDS: allopurinoL 100 MG TABLET PO SCH (08:19)
[2021-11-03] MEDS: MEROPENEM 500 MG in SODIUM CHLORIDE 0.9% 100 ML IV SCH ×2 (08:20→21:06)
[2021-11-03] MEDS: ENTACAPONE 200 MG TABLET PO SCH ×4 (08:20→21:07)
[2021-11-03] MEDS: CARBIDOPA/LEVODOPA 25-100 MG TABLET PO SCH ×4 (08:21→21:07)
[2021-11-03] MEDS: PANTOPRAZOLE 40 MG VIAL IV SCH (08:21)
[2021-11-03] MEDS: CLOTRIMAZOLE 1% CREAM 15 GM TUBE TOP SCH ×2 (08:21→21:08)
[2021-11-03] MEDS: VALPROIC ACID 250 MG/5 ML UDCUP PO SCH ×2 (08:21→21:07)
[2021-11-03] MEDS: LORazepam 1 MG TABLET PO SCH ×2 (08:22→19:43)
[2021-11-03] MEDS: DEXTROSE 5% 1,000 ML IV SCH ×3 (09:10→18:45)
[2021-11-03] MEDS: MEMANTINE 10 MG TABLET PO SCH ×2 (09:11→19:43)
[2021-11-03] MEDS: FONDAPARINUX 2.5 MG/0.5 ML SYRINGE SUBCUT SCH (09:13)
[2021-11-03] MEDS: LATANOPROST 0.005% OPH SOLN 2.5 ML BOTTLE BOTH EYES SCH (19:43)
[2021-11-04] MEDS: INSULIN LISPRO 100 UNIT/ML SUBCUT SCH ×4 (00:34→18:00)
[2021-11-04 04:26] LABS: Basophils % 0.1 % (0.0-0.8); Eosinophils # 0.1 10*3/uL (0.0-0.87); Eosinophils % 0.8 % (0.00-10.9); Hematocrit 27.3 VOL% (35.7-47.0); Hemoglobin 9.3 GM/DL (12.0-16.0); Immature Granulocytes % 6.6 %; Immature Granulocytes Absolute 0.95 #; Lymphocytes # 0.8 10*3/uL (1.4-4.0); Lymphocytes % 5.6 % (21.3-54.2); Mean Corpuscular HGB Conc 34.1 GM/DL (32-36); Mean Corpuscular Volume 82.7 FL (87-102); Mean Platelet Volume 13.7 FL (9.6-12.0); Monocytes # 1.2 10*3/uL (0.11-0.8); Monocytes % 8.4 % (1.7-12.7); NRBC # 0.02 10*3/uL; Neutrophils % 78.5 % (38.7-73.9); Platelet Count 155 T/CUMM (130-400); Red Cell Distribution Width 16.1 % (9.3-17.3); White Blood Count 14.4 T/CUMM (4-12)
[2021-11-04] MEDS: DEXTROSE 5% 1,000 ML IV SCH (04:38)
[2021-11-04 04:44] LABS: Calcium 6.9 MG/DL (8.5-10.1); Osmolality,Calculated 295.1 MOS/KG (273-304); Potassium 3.4 MMOL/L (3.5-5.1)
[2021-11-04 04:46] LABS: Band Neutrophils 2 % (0-10); Hypochromia Slight; Lymphocytes 8 % (20-55); Microcytosis Slight; Platelet Estimate Adequate; Total Cells Counted 100
[2021-11-04] MEDS: POLYVINYL ALCOHOL 1.4% OPH SOLN 15 ML BOTTLE BOTH EYES SCH ×3 (05:42→22:51)
[2021-11-04] MEDS: PRAMIPEXOLE 1 MG TABLET PO SCH ×3 (05:42→22:00)
[2021-11-04] MEDS: HYDROCORTISONE 100 MG VIAL IV SCH ×3 (05:42→21:05)
[2021-11-04] MEDS: allopurinoL 100 MG TABLET PO SCH (08:07)
[2021-11-04] MEDS: LORazepam 1 MG TABLET PO SCH ×2 (08:07→20:00)
[2021-11-04] MEDS: MEROPENEM 500 MG in SODIUM CHLORIDE 0.9% 100 ML IV SCH ×2 (08:07→20:58)
[2021-11-04] MEDS: MEMANTINE 10 MG TABLET PO SCH ×2 (08:07→20:00)
[2021-11-04] MEDS: VALPROIC ACID 250 MG/5 ML UDCUP PO SCH ×2 (08:09→21:00)
[2021-11-04] MEDS: CARBIDOPA/LEVODOPA 25-100 MG TABLET PO SCH ×4 (08:09→21:00)
[2021-11-04] MEDS: PANTOPRAZOLE 40 MG VIAL IV SCH (08:09)
[2021-11-04] MEDS: ENTACAPONE 200 MG TABLET PO SCH ×4 (08:09→21:00)
[2021-11-04] MEDS: CLOTRIMAZOLE 1% CREAM 15 GM TUBE TOP SCH ×2 (08:09→20:58)
[2021-11-04] MEDS: POTASSIUM BICARB EFFERVESCENT 20 MEQ TAB.EFF PO PRN (08:20)
[2021-11-04] MEDS: SODIUM CHLORIDE 0.45% 1,000 ML IV SCH ×3 (10:20→20:32)
[2021-11-04] MEDS: FONDAPARINUX 2.5 MG/0.5 ML SYRINGE SUBCUT SCH (12:45)
[2021-11-04] MEDS: LATANOPROST 0.005% OPH SOLN 2.5 ML BOTTLE BOTH EYES SCH (20:58)
[2021-11-05] MEDS: INSULIN LISPRO 100 UNIT/ML SUBCUT SCH ×5 (00:19→20:07)
[2021-11-05] MEDS: SODIUM CHLORIDE 0.45% 1,000 ML IV SCH ×4 (04:00→18:03)
[2021-11-05 04:26] LABS: Basophils % 0.2 % (0.0-0.8); Eosinophils % 0.3 % (0.00-10.9); Hematocrit 28.9 VOL% (35.7-47.0); Hemoglobin 9.8 GM/DL (12.0-16.0); Immature Granulocytes % 6.3 %; Immature Granulocytes Absolute 0.92 #; Lymphocytes # 0.9 10*3/uL (1.4-4.0); Mean Corpuscular HGB Conc 33.9 GM/DL (32-36); Mean Corpuscular Volume 81.6 FL (87-102); Mean Platelet Volume 13.4 FL (9.6-12.0); Monocytes # 0.9 10*3/uL (0.11-0.8); Neutrophils % 81.2 % (38.7-73.9); Platelet Count 196 T/CUMM (130-400); Red Blood Count 3.54 MC/CUMM (3.8-5.5); Red Cell Distribution Width 15.9 % (9.3-17.3); White Blood Count 14.6 T/CUMM (4-12)
[2021-11-05 04:35] LABS: Calcium 6.8 MG/DL (8.5-10.1); Potassium 3.8 MMOL/L (3.5-5.1)
[2021-11-05 04:48] LABS: Hypochromia 1+; Lymphocytes 3 % (20-55); Microcytosis 1+; Platelet Estimate Adequate; Total Cells Counted 100
[2021-11-05] MEDS: POLYVINYL ALCOHOL 1.4% OPH SOLN 15 ML BOTTLE BOTH EYES SCH ×3 (05:30→21:08)
[2021-11-05] MEDS: HYDROCORTISONE 100 MG VIAL IV SCH ×3 (05:30→21:09)
[2021-11-05] MEDS: PRAMIPEXOLE 1 MG TABLET PO SCH ×3 (06:00→21:08)
[2021-11-05 08:57] LABS: Total Protein 5.5 G/DL (6.4-8.2)
[2021-11-05] MEDS: FONDAPARINUX 2.5 MG/0.5 ML SYRINGE SUBCUT SCH (10:14)
[2021-11-05] MEDS: PANTOPRAZOLE 40 MG VIAL IV SCH (10:14)
[2021-11-05] MEDS: MEROPENEM 500 MG in SODIUM CHLORIDE 0.9% 100 ML IV SCH ×2 (10:14→20:10)
[2021-11-05] MEDS: MEMANTINE 10 MG TABLET PO SCH ×2 (10:25→20:09)
[2021-11-05] MEDS: allopurinoL 100 MG TABLET PO SCH (10:25)
[2021-11-05] MEDS: LORazepam 1 MG TABLET PO SCH ×2 (10:25→20:07)
[2021-11-05] MEDS: ENTACAPONE 200 MG TABLET PO SCH ×4 (10:25→20:07)
[2021-11-05] MEDS: CLOTRIMAZOLE 1% CREAM 15 GM TUBE TOP SCH ×2 (10:26→20:08)
[2021-11-05] MEDS: CARBIDOPA/LEVODOPA 25-100 MG TABLET PO SCH ×4 (10:26→20:07)
[2021-11-05] MEDS: VALPROIC ACID 250 MG/5 ML UDCUP PO SCH ×2 (10:26→20:07)
[2021-11-05] MEDS: LATANOPROST 0.005% OPH SOLN 2.5 ML BOTTLE BOTH EYES SCH (20:08)
[2021-11-06 03:30] LABS: Basophils % 0.1 % (0.0-0.8); Eosinophils % 0.3 % (0.00-10.9); Hemoglobin 9.5 GM/DL (12.0-16.0); Immature Granulocytes % 5.2 %; Lymphocytes # 0.7 10*3/uL (1.4-4.0); Lymphocytes % 5.6 % (21.3-54.2); Mean Corpuscular HGB Conc 33.9 GM/DL (32-36); Mean Corpuscular Volume 82.4 FL (87-102); Mean Platelet Volume 13.8 FL (9.6-12.0); Monocytes # 0.6 10*3/uL (0.11-0.8); Monocytes % 4.9 % (1.7-12.7); Neutrophils % 83.9 % (38.7-73.9); Platelet Count 214 T/CUMM (130-400); Red Cell Distribution Width 16.4 % (9.3-17.3); White Blood Count 11.6 T/CUMM (4-12)
[2021-11-06 03:44] LABS: Calcium 6.8 MG/DL (8.5-10.1); Osmolality,Calculated 289.4 MOS/KG (273-304); Potassium 3.5 MMOL/L (3.5-5.1)
[2021-11-06 03:53] LABS: Eosinophils 1 % (0-10); Lymphocytes 5 % (20-55); Platelet Estimate Adequate; Total Cells Counted 100
[2021-11-06] MEDS: SODIUM CHLORIDE 0.45% 1,000 ML IV SCH ×2 (04:29→13:30)
[2021-11-06] MEDS: HYDROCORTISONE 100 MG VIAL IV SCH ×3 (05:46→22:24)
[2021-11-06] MEDS: PRAMIPEXOLE 1 MG TABLET PO SCH ×3 (05:46→22:13)
[2021-11-06] MEDS: POLYVINYL ALCOHOL 1.4% OPH SOLN 15 ML BOTTLE BOTH EYES SCH ×3 (05:46→22:22)
[2021-11-06] MEDS: INSULIN LISPRO 100 UNIT/ML SUBCUT SCH ×4 (08:28→22:21)
[2021-11-06] MEDS: VALPROIC ACID 250 MG/5 ML UDCUP PO SCH ×2 (10:04→21:16)
[2021-11-06] MEDS: MEMANTINE 10 MG TABLET PO SCH ×2 (10:04→20:09)
[2021-11-06] MEDS: ENTACAPONE 200 MG TABLET PO SCH ×4 (10:04→22:03)
[2021-11-06] MEDS: allopurinoL 100 MG TABLET PO SCH (10:04)
[2021-11-06] MEDS: CARBIDOPA/LEVODOPA 25-100 MG TABLET PO SCH ×4 (10:04→20:16)
[2021-11-06] MEDS: FONDAPARINUX 2.5 MG/0.5 ML SYRINGE SUBCUT SCH (10:05)
[2021-11-06] MEDS: PANTOPRAZOLE 40 MG VIAL IV SCH (10:05)
[2021-11-06] MEDS: MEROPENEM 500 MG in SODIUM CHLORIDE 0.9% 100 ML IV SCH ×2 (10:05→21:59)
[2021-11-06] MEDS: CLOTRIMAZOLE 1% CREAM 15 GM TUBE TOP SCH ×2 (10:06→21:13)
[2021-11-06] MEDS: LORazepam 1 MG TABLET PO SCH ×2 (10:07→22:09)
[2021-11-06] MEDS: LATANOPROST 0.005% OPH SOLN 2.5 ML BOTTLE BOTH EYES SCH (22:04)
[2021-11-07] MEDS: PRAMIPEXOLE 1 MG TABLET PO SCH ×3 (05:00→21:02)
[2021-11-07] MEDS: HYDROCORTISONE 100 MG VIAL IV SCH ×3 (05:00→21:02)
[2021-11-07] MEDS: POLYVINYL ALCOHOL 1.4% OPH SOLN 15 ML BOTTLE BOTH EYES SCH ×3 (05:00→21:04)
[2021-11-07 07:10] LABS: Basophils % 0.2 % (0.0-0.8); Eosinophils # 0.1 10*3/uL (0.0-0.87); Eosinophils % 0.6 % (0.00-10.9); Hematocrit 27.9 VOL% (35.7-47.0); Hemoglobin 9.7 GM/DL (12.0-16.0); Immature Granulocytes % 4.1 %; Immature Granulocytes Absolute 0.45 #; Lymphocytes # 1.3 10*3/uL (1.4-4.0); Mean Corpuscular HGB Conc 34.8 GM/DL (32-36); Mean Corpuscular Volume 81.6 FL (87-102); Monocytes # 0.7 10*3/uL (0.11-0.8); Monocytes % 6.4 % (1.7-12.7); NRBC # 0.02 10*3/uL; Neutrophils % 76.7 % (38.7-73.9); Platelet Count 198 T/CUMM (130-400); Red Blood Count 3.42 MC/CUMM (3.8-5.5); Red Cell Distribution Width 16.9 % (9.3-17.3)
[2021-11-07 09:23] LABS: Calcium 7.6 MG/DL (8.5-10.1); Osmolality,Calculated 287.1 MOS/KG (273-304); Potassium 3.5 MMOL/L (3.5-5.1)
[2021-11-07] MEDS: allopurinoL 100 MG TABLET PO SCH (10:27)
[2021-11-07] MEDS: ENTACAPONE 200 MG TABLET PO SCH ×4 (10:27→21:03)
[2021-11-07] MEDS: CARBIDOPA/LEVODOPA 25-100 MG TABLET PO SCH ×4 (10:27→21:04)
[2021-11-07] MEDS: MEMANTINE 10 MG TABLET PO SCH ×2 (10:27→20:04)
[2021-11-07] MEDS: PANTOPRAZOLE 40 MG VIAL IV SCH (10:28)
[2021-11-07] MEDS: FONDAPARINUX 2.5 MG/0.5 ML SYRINGE SUBCUT SCH (10:28)
[2021-11-07] MEDS: VALPROIC ACID 250 MG/5 ML UDCUP PO SCH ×2 (10:28→21:00)
[2021-11-07] MEDS: SODIUM CHLORIDE 0.45% 1,000 ML IV SCH (10:30)
[2021-11-07] MEDS: MEROPENEM 500 MG in SODIUM CHLORIDE 0.9% 100 ML IV SCH ×2 (10:32→21:01)
[2021-11-07] MEDS: INSULIN LISPRO 100 UNIT/ML SUBCUT SCH ×3 (12:42→21:00)
[2021-11-07] MEDS: CLOTRIMAZOLE 1% CREAM 15 GM TUBE TOP SCH ×2 (16:43→21:04)
[2021-11-07] MEDS: LATANOPROST 0.005% OPH SOLN 2.5 ML BOTTLE BOTH EYES SCH (20:08)
[2021-11-08] MEDS: SODIUM CHLORIDE 0.45% 1,000 ML IV SCH (06:02)
[2021-11-08] MEDS: POLYVINYL ALCOHOL 1.4% OPH SOLN 15 ML BOTTLE BOTH EYES SCH (06:03)
[2021-11-08] MEDS: PRAMIPEXOLE 1 MG TABLET PO SCH ×2 (06:03→15:25)
[2021-11-08] MEDS: HYDROCORTISONE 100 MG VIAL IV SCH (06:04)
[2021-11-08 07:04] LABS: Calcium 7.6 MG/DL (8.5-10.1); Osmolality,Calculated 287.8 MOS/KG (273-304); Potassium 3.1 MMOL/L (3.5-5.1)
[2021-11-08] MEDS: INSULIN LISPRO 100 UNIT/ML SUBCUT SCH ×2 (09:01→12:05)
[2021-11-08] MEDS: CARBIDOPA/LEVODOPA 25-100 MG TABLET PO SCH ×2 (11:09→15:25)
[2021-11-08] MEDS: ENTACAPONE 200 MG TABLET PO SCH ×2 (11:09→15:25)
[2021-11-08] MEDS: FONDAPARINUX 2.5 MG/0.5 ML SYRINGE SUBCUT SCH (11:09)
[2021-11-08] MEDS: VALPROIC ACID 250 MG/5 ML UDCUP PO SCH (11:09)
[2021-11-08] MEDS: allopurinoL 100 MG TABLET PO SCH (11:09)
[2021-11-08] MEDS: MEMANTINE 10 MG TABLET PO SCH (11:09)
[2021-11-08] MEDS: PANTOPRAZOLE 40 MG VIAL IV SCH (11:10)
[2021-11-08 12:49] VITALS: BP 129/44
[2021-11-08] MEDS: MEROPENEM 500 MG in SODIUM CHLORIDE 0.9% 100 ML IV SCH (13:54)
[2021-11-08] MEDS: CLOTRIMAZOLE 1% CREAM 15 GM TUBE TOP SCH (13:54)
[2021-11-08] MEDS: POTASSIUM BICARB EFFERVESCENT 20 MEQ TAB.EFF PO PRN (15:25)
== END 2021-11-08 15:24 | DRG 871 ==
LOC: EDUNIT# → EDBD → N.ED 21:53 → N.EDINP 10-29 02:18 → SUATTDRO 10-29 02:18 → N.CC 10-29 04:22 → N.TELES 11-06 18:19
PROVIDERS: ADMIT Internal Medicine; ATTEND Emergency Medicine